=== PATIENT | male | born 1935 | race Caucasian/White ===

== ENCOUNTER → 2018-04-20 | Outpatient (CLI) | payer OTHER ==
[~2018-04-20] MED LIST: ASPI-555 PO; BENA1TAB17 PO; CARV6.25 PO; FURO20TA4 PO; ISOS30TA PO; NITR0.4T50 SL
== END | disposition home or self-care (01) ==
LOC: SHCH 09:01
PROVIDERS: ATTEND Internal Medicine Cardiovascular Disease
DX: I35.0 Nonrheumatic aortic (valve) stenosis (principal); I42.9 Cardiomyopathy, unspecified; I50.9 Heart failure, unspecified
CPT/HCPCS: 93306

== ENCOUNTER 2019-04-14 15:21 | Inpatient (IN) | payer OTHER ==
[2019-04-14] VITALS (13 sets, daily range): BP systolic 64–151; BP diastolic 27–112
[~2019-04-14] VITALS: Ht 175.3 cm; Wt 102.1 kg
[2019-04-14 15:44] LABS: BASOPHILS % (AUTO) 0.4 % (0.0-5.0); EOSINOPHILS % (AUTO) 1.9 % (0.0-8.0); HEMATOCRIT 23.2 % (42-54); LYMPHOCYTES % (AUTO) 18.7 % (21.0-51.0); MEAN CORPUSCULAR HEMOGLOBIN 26.8 pg (27.0-33.0); MEAN CORPUSCULAR HGB CONC 31.1 g/dL (32.0-36.0); MEAN CORPUSCULAR VOLUME 86.1 fL (79-99); NUCLEATED RED BLOOD CELLS 0.2 % (0.0-0.19); PLATELET COUNT (AUTO) 286 K/uL (130-400); RED CELL DISTRIBUTION WIDTH 16.2 % (11.0-15.5); WHITE BLOOD COUNT (AUTO) 12.3 K/uL (4.8-10.8)
[2019-04-14] MEDS ORDERED: SODIUM CHLORIDE 0.9% 1000ML 2,000 ML IV ONE (15:44)
[2019-04-14] MEDS ORDERED: ZOSYN 3.375GM+NS 50ML 50 ML IV ONE (15:52)
[2019-04-14 15:57] LABS: INR 1.09 (0.85-1.15); PARTIAL THROMBOPLASTIN TIME 21.7 SEC (26.3-35.5); PROTHROMBIN TIME 11.4 SEC (9.6-11.6)
[2019-04-14 16:01] LABS: CARBON DIOXIDE 24 mmol/L (21-32); CHLORIDE 104 mmol/L (101-111); CREATININE 2.2 mg/dL (0.5-1.5); GLOMERULAR FILTR. RATE CALC 30 mL/min (>60); GLUCOSE,RANDOM 321 mg/dL (70-105); POTASSIUM 5.7 mmol/L (3.5-5.1); SODIUM SERUM 141 mmol/L (136-145); UREA NITROGEN, BLOOD 25 mg/dL (7-18)
[2019-04-14 16:04] LABS: ABG BASE EXCESS -5.6 mmol/L (-2.0-3.0); ABG HCO3 19.5 mmol/L (21.0-28.0); ABG OXYGEN SATURATION 99.7 % (95.0-99.0); ABG PCO2 37 mmHg (35-48)
[2019-04-14 16:13] LABS: ALANINE AMINOTRANSFERASE 14 U/L (12-78); ALBUMIN 2.1 g/dL (3.5-5.0); ASPARTATE AMINOTRANSFERASE 18 U/L (10-37); BILIRUBIN,TOTAL 0.3 mg/dL (0.2-1.0); CREATINE KINASE, TOTAL 59 U/L (21-232); MYOGLOBIN 174 ng/mL (10-92); TOTAL PROTEIN, SERUM 5.7 g/dL (6.0-8.3); TROPONIN I < 0.04 ng/mL (0.00-0.06)
[2019-04-14 16:14] LABS: B-TYPE NATRIURETIC PEPTIDE 197 pg/mL (0-100)
[2019-04-14] MEDS ORDERED: INSULIN HUMULIN R 100 UNIT/ML 3ML ONE (16:46)
[2019-04-14 18:04] LABS: HEMOGLOBIN A1C 6.4 % (4.0-6.0)
[2019-04-14] MEDS ORDERED: ACETAMINOPHEN 325 MG TAB ONE (18:12)
[2019-04-14] MEDS ORDERED: ACETAMINOPHEN 650 MG SUPPOSITORY RC PRN (18:15)
[2019-04-14] MEDS ORDERED: ONDANSETRON HCL 4 MG/2 ML VIAL IV PRN (18:15)
[2019-04-14] MEDS ORDERED: OCTREOTIDE ACETATE 500 MCG in SODIUM CHLORIDE 0.9% 97.5 ML IV PRN (18:15)
[2019-04-14] MEDS ORDERED: PANTOPRAZOLE SODIUM 80 MG in SODIUM CHLORIDE 0.9% 100 ML IV SCH (18:37)
[2019-04-14] MEDS ORDERED: DEXTROSE 50%-WATER 50 ML DISP.SYRIN IV PRN (19:00)
[2019-04-14] MEDS ORDERED: GLUCAGON 1MG KIT 1 MG ML IM PRN (19:00)
[2019-04-14] MEDS ORDERED: NOREPINEPHRINE BITARTRATE 1 MG/1 ML ML IV ONE (19:09)
[2019-04-14] MEDS ORDERED: NOREPINEPHRINE 4MG/NS 250ML 250 ML IV SCH (19:30)
[2019-04-14 19:59] LABS: APPEARANCE,URINE Clear (CLEAR); BILIRUBIN,URINE Negative (NEGATIVE); COLOR,URINE Yellow (YELLOW); GLUCOSE, URINE (UA) Negative (NEGATIVE); KETONES,URINE Negative (NEGATIVE); LEUKOCYTE ESTERASE ,URINE Negative (NEGATIVE); NITRATE,URINE Negative (NEGATIVE); OCCULT BLOOD,URINE Negative (NEGATIVE); PH,URINE 6.5 (5.0-8.0); PROTEIN,URINE Negative (NEGATIVE); UROBILINOGEN,URINE 0.2 mg/dL (0.2-1.0)
[2019-04-14] MEDS: INSULIN HUMULIN R 100 UNIT/ML 3ML SQ SCH (21:00)
[2019-04-14] MEDS ORDERED: ZOSYN 3.375GM+NS 50ML 50 ML IV SCH (21:00)
[2019-04-14] MEDS ORDERED: SODIUM CHLORIDE 0.9% 250 ML IV ONE (21:05)
[2019-04-14] MEDS: SODIUM CHLORIDE 0.9% 1000ML 1,000 ML IV SCH (21:16)
[2019-04-14 22:59] LABS: ABG BASE EXCESS -9.4 mmol/L (-2.0-3.0); ABG OXYGEN SATURATION 98.7 % (95.0-99.0); ABG PCO2 46 mmHg (35-48)
[2019-04-14] MEDS ORDERED: SODIUM BICARB 50MEQ 50ML VIAL ONE ×2 (23:21→23:51)
[2019-04-14] MEDS ORDERED: DEXTROSE 5%-WATER 1,000 ML IV ONE (23:52)
[2019-04-15] VITALS (38 sets, daily range): BP systolic 48–164; BP diastolic 19–117
[2019-04-15] MEDS ORDERED: ALBUMIN (HUMAN) 5% 250 ML IV ONE (02:06)
[2019-04-15] MEDS ORDERED: DOPAMINE HCL 400 MG/D5%-WATER 250 ML IV ONE (02:07)
[2019-04-15 03:02] LABS: BASOPHILS % (AUTO) 0.1 % (0.0-5.0); EOSINOPHILS % (AUTO) 0.1 % (0.0-8.0); HEMATOCRIT 32.4 % (42-54); MEAN CORPUSCULAR HEMOGLOBIN 27.4 pg (27.0-33.0); MEAN CORPUSCULAR VOLUME 88.6 fL (79-99); MONOCYTES % (AUTO) 5.7 % (3.0-13.0); NEUTROPHILS % (AUTO) 87.1 % (40.0-77.0); NUCLEATED RED BLOOD CELLS 0.4 % (0.0-0.19); PLATELET COUNT (AUTO) 184 K/uL (130-400); RED BLOOD CELL COUNT(AUTO) 3.65 MIL/uL (4.50-6.20); RED CELL DISTRIBUTION WIDTH 15.7 % (11.0-15.5); WHITE BLOOD COUNT (AUTO) 19.9 K/uL (4.8-10.8)
[2019-04-15 03:26] LABS: ALBUMIN 2.5 g/dL (3.5-5.0); BILIRUBIN,TOTAL 1.2 mg/dL (0.2-1.0); CREATININE 2.6 mg/dL (0.5-1.5); TOTAL PROTEIN, SERUM 6.5 g/dL (6.0-8.3)
[2019-04-15 03:33] LABS: POTASSIUM 6.4 mmol/L (3.5-5.1)
[2019-04-15] MEDS ORDERED: DOPAMINE HCL 400 MG/D5%-WATER 250 ML IV PRN (03:45)
[2019-04-15] MEDS ORDERED: PHENYLEPHRINE HCL 10 MG/ML 1ML VIAL IV ONE (03:45)
[2019-04-15] MEDS ORDERED: PHENYLEPHRINE HCL 10 MG in SODIUM CHLORIDE 0.9% 250 ML IV PRN (03:45)
[2019-04-15] MEDS ORDERED: INSULIN HUMULIN R 100 UNIT/ML 3ML IV STA (04:15)
[2019-04-15] MEDS ORDERED: CALCIUM CHLORIDE 100 MG/ML 10 ML SYG IVP STA (04:15)
[2019-04-15] MEDS ORDERED: DEXTROSE 50%-WATER 25 GM/50 ML VIAL IV STA (04:15)
[2019-04-15] MEDS ORDERED: DEXTROSE 5%-WATER 1,000 ML IV SCH (04:15)
[2019-04-15] MEDS: SODIUM CHLORIDE 0.9% 1000ML 1,000 ML IV SCH (04:39)
[2019-04-15] MEDS: INSULIN HUMULIN R 100 UNIT/ML 3ML SQ SCH ×2 (06:23→11:26)
--- NOTE | 2019-04-15 07:00 | NUR ---
PATIENT ALERT AWAKE AND ORIENTATED X3. PATIENT REQUESTS TO BE A DNR/DNI. PATIENT ABLE TO UNDERSTAND WHAT DNR AND DNI MEANS. PATIENT ABLE TO PUT HIS PAUL ON DNR/DNI PAPER.
--- NOTE | 2019-04-15 07:05 | NUR ---
PATIENT ON CONTINUOUS BIPAP. PATIENT HAS LEVOPHED, PHENYLEPHRINE, DOPAMINE, SODIUM BICARB DRIP, PROTONIX AND SANDOSTATIN IV DRIPS RUNNING. STODDARD CATHETER INTACT, NO URINE.
[2019-04-15] MEDS ORDERED: SODIUM CHLORIDE 0.9% 500ML 500 ML IV ONE (07:35)
[2019-04-15] MEDS ORDERED: PHENYLEPHRINE HCL 50 MG/NS 250ML IV PRN ×2 (08:15)
[2019-04-15] MEDS ORDERED: CEFEPIME HCL 1 GM VIAL IVP SCH (11:00)
--- NOTE | 2019-04-15 11:00 | NUR ---
DR. MONET VISITED AND ASSESSED PATIENT. UPDATED ON PATIENT LABS AND STATUS. ORDERS GIVEN SEE CHART.
--- NOTE | 2019-04-15 11:20 | NUR ---
DR. EGAN VISITED AND ASSESSED PATIENT. UPDATED ON PATIENT LABS AND STATUS. DR. EGAN SPOKE TO PATIENT ABOUT HIS SITUATION. DR. EGAN CONFIRMED PATIENT WISHES TO BE A DNR, NO INTUBATION AND FOCUS MORE ON COMFORT MEASURES.
[2019-04-15] MEDS ORDERED: HYDROMORPHONE 1 MG/1 ML AMP IVP PRN (11:45)
--- NOTE | 2019-04-15 12:01 | NUR ---
D/C PLAN CM spoke to pt regarding d/c planning. Pt currently with bipap and critically ill. Pt was previously ind. with ADL's and living alone. Pt gave CM verbal consent to speak to friend named Venancio Rosenbaum. CM called friend and obtained family member phone number Porfirio Jara (nephew) [phone]. Venancio reports that pt does having advanced directives/MPOA. CM asked for friend to bring documents to hospital. States he will be visiting in about one hour. CM to contact nephew. Plan for now is to possibly rehab/[facility] vs hospice if no improvement in medical condition CM to f/u. Addendum: 04/15/19 at 1206 by CHELSEA ROMERO Amended: Links added.
[2019-04-15] MEDS ORDERED: PHARMACY COMMUNICATION MISC SCH (12:30)
[2019-04-15] MEDS ORDERED: NOREPINEPHRINE BITARTRATE 8 MG/NS 250ML IV SCH ×2 (12:45)
--- NOTE | 2019-04-15 13:35 | NUR ---
PRONOUNCEMENT CALLED TO ROOM BY PRIMARY NURSE, PT IS DNR, HE IS UNRESPONSIVE, NO HEART TONES, NO RESPIRATIONS, PUPILS ARE FIXED AND DILATED. PRONOUNCED AT THIS TIME, WITNESSED BY PRIMARY NURSE FRIENDS AT BEDSIDE.
--- NOTE | 2019-04-15 13:35 | NUR ---
PATIENT HAS NO PULSE, HEART RATE MONITOR NO RATE, FLATLINE. INFORMED DR. HERNANDEZ AND DR. EGAN ABOUT PATIENT . PATIENT FRIENDS AT BEDSIDE.
== END 2019-04-15 13:35 | disposition expired | DRG 871 ==
LOC: EDH 15:21 → EDHIP 17:00 → 2CH 20:52
PROVIDERS: ADMIT Internal Medicine; ATTEND Internal Medicine
PROC: 30233N1 Transfusion of Nonautologous Red Blood Cells into Peripheral Vein, Percutaneous Approach (ICD-10-PCS; principal; 2019-04-14)
PROC: 5A09357 Assistance with Respiratory Ventilation, Less than 24 Consecutive Hours, Continuous Positive Airway Pressure (ICD-10-PCS; 2019-04-15)
DX: A41.9 Sepsis, unspecified organism (principal); J96.01 Acute respiratory failure with hypoxia; K72.00 Acute and subacute hepatic failure without coma; I82.621 Acute embolism and thrombosis of deep veins of right upper extremity; K92.2 Gastrointestinal hemorrhage, unspecified; N17.9 Acute kidney failure, unspecified; D64.9 Anemia, unspecified; E11.22 Type 2 diabetes mellitus with diabetic chronic kidney disease; E78.5 Hyperlipidemia, unspecified; E87.5 Hyperkalemia; I12.9 Hypertensive chronic kidney disease with stage 1 through stage 4 chronic kidney disease, or unspecified chronic kidney disease; I25.10 Atherosclerotic heart disease of native coronary artery without angina pectoris; I25.5 Ischemic cardiomyopathy; I71.4 Abdominal aortic aneurysm, without rupture; E66.9 Obesity, unspecified; N18.9 Chronic kidney disease, unspecified; R57.8 Other shock; Z66 Do not resuscitate; Z95.1 Presence of aortocoronary bypass graft; Z79.899 Other long term (current) drug therapy; I25.2 Old myocardial infarction; Z68.33 Body mass index [BMI] 33.0-33.9, adult
CPT/HCPCS: 36415; 36430; 36600; 71045; 76700; 80053; 81003; 82270; 82435; 82550; 82803; 82947; 82948; 83036; 83605; 83874; 83880; 84132; 84145; 84295; 84484; 85018; 85025; 85610; 85730; 86850; 86900; 86901; 86922; 87040; 87088; 93005; 93931; 94660; 99291; C9113; G0378; J0692; J1170; J1265; J1815; J2354; J2370; J2405; J2543; J3490; J7030; J7040; J7070; P9016; P9045